=== PATIENT | male | born 1940 | race Caucasian/White ===

== ENCOUNTER 2019-09-25 14:53 | Day surgery (SDC) | payer MEDICARE ==
[2019-09-25] MEDS ORDERED: LEVSOD100 PO (17:20)
[2019-09-25] MEDS ORDERED: IMODIUM MULTI-1 EAC1 PO (17:20)
[2019-09-25] MEDS ORDERED: PANT40 PO (17:21)
[2019-09-25] MEDS ORDERED: Lomotil Tablet1 EACH PO (17:21)
[2019-09-25] MEDS ORDERED: XARELTO20 MG PO (17:23)
== END 2019-09-25 17:47 | disposition home or self-care (01) ==
LOC: ATC 14:53
DX: Z76.0 Encounter for issue of repeat prescription (principal); I10 Essential (primary) hypertension; E78.5 Hyperlipidemia, unspecified; E03.9 Hypothyroidism, unspecified; Z93.2 Ileostomy status; Z90.49 Acquired absence of other specified parts of digestive tract; Z79.899 Other long term (current) drug therapy
CPT/HCPCS: 96360; 96361; J7120

== ENCOUNTER 2019-10-04 00:15 | Day surgery (SDC) | payer MEDICARE ==
[~2019-10-04 00:15] MED LIST: IMODIUM MULTI-1 EAC1 PO; LEVSOD100 PO; Lomotil Tablet1 EACH PO; PANT40 PO; XARELTO20 MG PO
== END 2019-10-04 12:15 | disposition home or self-care (01) ==
LOC: ATC 00:15
DX: Z93.2 Ileostomy status (principal); Z90.49 Acquired absence of other specified parts of digestive tract; I10 Essential (primary) hypertension; E78.5 Hyperlipidemia, unspecified; E03.9 Hypothyroidism, unspecified; Z79.899 Other long term (current) drug therapy; Z79.01 Long term (current) use of anticoagulants
CPT/HCPCS: 96360; 96361; J7120

== ENCOUNTER 2019-10-11 00:11 | Day surgery (SDC) | payer MEDICARE ==
[2019-10-11] MEDS ORDERED: Lactated Ringe500 M1 (09:38)
[2019-10-11] MEDS ORDERED: Lactated Ringe500 M1 IV (09:40)
[2019-10-11 10:14] LABS: Albumin, Blood 2.7 g/dL (3.4-5.0); Albumin/Globulin Ratio 0.7 (0.8-1.8); Bilirubin, Total 0.5 mg/dL (0.1-1.0); Bun/Creatinine Ratio 8.1 (12.0-20.0); Calcium, Blood 8.1 mg/dL (8.5-10.1); Creatinine, Blood 1.24 mg/dL (0.60-1.20); Globulin, Blood 3.9 g/dL (2.2-4.0); Potassium, Blood 3.2 mmol/L (3.5-5.5); Total Protein, Blood 6.6 g/dL (6.4-8.2)
== END 2019-10-11 11:38 | disposition home or self-care (01) ==
LOC: ATC 00:11
PROVIDERS: Surgery
DX: Z93.2 Ileostomy status (principal); E78.5 Hyperlipidemia, unspecified; I10 Essential (primary) hypertension; E03.9 Hypothyroidism, unspecified; Z90.49 Acquired absence of other specified parts of digestive tract; Z79.899 Other long term (current) drug therapy
CPT/HCPCS: 80053; 96360; 96361; J7120

== ENCOUNTER 2019-10-13 00:43 | Day surgery (SDC) | payer MEDICARE ==
[~2019-10-13 00:43] MED LIST changes: +Lactated Ringe500 M1; +Lactated Ringe500 M1 IV
== END 2019-10-13 11:41 | disposition home or self-care (01) ==
LOC: ATC 00:43
DX: Z93.2 Ileostomy status (principal); Z90.49 Acquired absence of other specified parts of digestive tract; E78.5 Hyperlipidemia, unspecified; I10 Essential (primary) hypertension; E03.9 Hypothyroidism, unspecified; Z79.899 Other long term (current) drug therapy
CPT/HCPCS: J7120

== ENCOUNTER 2019-10-15 00:07 | Day surgery (SDC) | payer MEDICARE ==
[2019-10-15 14:50] LABS: Alanine Aminotransfer (ALT/SGP 46 U/L (12-78); Albumin, Blood 2.9 g/dL (3.4-5.0); Albumin/Globulin Ratio 0.7 (0.8-1.8); Alk Phos 146 U/L (50-136); Anion Gap 8 mmol/L (6-16); Aspartate Aminotrans (AST/SGOT 29 U/L (12-37); Bilirubin, Total 0.5 mg/dL (0.1-1.0); Blood Urea Nitrogen 7 mg/dL (8-24); Bun/Creatinine Ratio 6.1 (12.0-20.0); CO2, Blood 25 mmol/L (21-32); Calcium, Blood 8.4 mg/dL (8.5-10.1); Chloride, Blood 105 mmol/L (98-108); Creatinine, Blood 1.15 mg/dL (0.60-1.20); Globulin, Blood 4.2 g/dL (2.2-4.0); Glomerular Filtration Rate >60 (60-); Glucose, Blood 162 mg/dL (70-99); Potassium, Blood 3.4 mmol/L (3.5-5.5); Sodium, Blood 138 mmol/L (136-145); Total Protein, Blood 7.1 g/dL (6.4-8.2)
== END 2019-10-15 16:20 | disposition home or self-care (01) ==
LOC: ATC 00:07
PROVIDERS: Surgery
DX: Z93.2 Ileostomy status (principal); E78.5 Hyperlipidemia, unspecified; I10 Essential (primary) hypertension; E03.9 Hypothyroidism, unspecified; Z79.899 Other long term (current) drug therapy; Z79.01 Long term (current) use of anticoagulants; Z90.49 Acquired absence of other specified parts of digestive tract
CPT/HCPCS: 80053; J7120

== ENCOUNTER 2019-10-19 00:02 | Day surgery (SDC) | payer MEDICARE | END 2019-10-19 11:45 | disposition home or self-care (01) | LOC: ATC 00:02 | DX: Z43.2 Encounter for attention to ileostomy (principal); E78.5 Hyperlipidemia, unspecified; I10 Essential (primary) hypertension; E03.9 Hypothyroidism, unspecified; Z79.01 Long term (current) use of anticoagulants; Z79.899 Other long term (current) drug therapy; Z90.49 Acquired absence of other specified parts of digestive tract | CPT/HCPCS: 96360; 96361; J7120 ==

== ENCOUNTER 2019-10-23 00:02 | Day surgery (SDC) | payer MEDICARE ==
[2019-10-23 11:01] LABS: Albumin, Blood 3.5 g/dL (3.4-5.0); Albumin/Globulin Ratio 0.8 (0.8-1.8); Bilirubin, Total 0.7 mg/dL (0.1-1.0); Bun/Creatinine Ratio 10.3 (12.0-20.0); Calcium, Blood 8.8 mg/dL (8.5-10.1); Creatinine, Blood 1.45 mg/dL (0.60-1.20); Globulin, Blood 4.3 g/dL (2.2-4.0); Potassium, Blood 4.1 mmol/L (3.5-5.5); Total Protein, Blood 7.8 g/dL (6.4-8.2)
== END 2019-10-23 12:55 | disposition home or self-care (01) ==
LOC: ATC 00:02
PROVIDERS: Surgery
DX: Z93.2 Ileostomy status (principal); E78.5 Hyperlipidemia, unspecified; I10 Essential (primary) hypertension; E03.9 Hypothyroidism, unspecified; Z90.49 Acquired absence of other specified parts of digestive tract; Z79.899 Other long term (current) drug therapy
CPT/HCPCS: 80053; 96360; 96361; J7120

== ENCOUNTER 2019-10-25 00:03 | Day surgery (SDC) | payer MEDICARE | END 2019-10-25 12:02 | disposition home or self-care (01) | LOC: ATC 00:03 | DX: Z93.2 Ileostomy status (principal); Z90.49 Acquired absence of other specified parts of digestive tract; E11.9 Type 2 diabetes mellitus without complications; E78.5 Hyperlipidemia, unspecified; E03.9 Hypothyroidism, unspecified; Z79.899 Other long term (current) drug therapy; Z79.01 Long term (current) use of anticoagulants | CPT/HCPCS: 96360; 96361; C1751; J7120 ==

== ENCOUNTER 2019-10-31 00:18 | Day surgery (SDC) | payer MEDICARE | END 2019-10-31 12:05 | disposition home or self-care (01) | LOC: ATC 00:18 | DX: Z93.2 Ileostomy status (principal); Z90.49 Acquired absence of other specified parts of digestive tract; I10 Essential (primary) hypertension; E78.5 Hyperlipidemia, unspecified; E03.9 Hypothyroidism, unspecified; Z79.899 Other long term (current) drug therapy; Z79.01 Long term (current) use of anticoagulants | CPT/HCPCS: 96360; J7120 ==

== ENCOUNTER 2019-11-05 00:06 | Day surgery (SDC) | payer MEDICARE | END 2019-11-05 11:43 | disposition home or self-care (01) | LOC: ATC 00:06 | DX: Z93.2 Ileostomy status (principal); Z90.49 Acquired absence of other specified parts of digestive tract; I10 Essential (primary) hypertension; E78.5 Hyperlipidemia, unspecified; E03.9 Hypothyroidism, unspecified; Z79.899 Other long term (current) drug therapy | CPT/HCPCS: J7120 ==

== ENCOUNTER 2019-11-14 00:03 | Day surgery (SDC) | payer MEDICARE | END 2019-11-14 11:08 | disposition home or self-care (01) | LOC: ATC 00:03 | DX: Z93.2 Ileostomy status (principal); I10 Essential (primary) hypertension; E78.5 Hyperlipidemia, unspecified; E03.9 Hypothyroidism, unspecified; Z79.01 Long term (current) use of anticoagulants; Z79.899 Other long term (current) drug therapy | CPT/HCPCS: 96360; J7120 ==

== ENCOUNTER 2019-11-16 00:10 | Day surgery (SDC) | payer MEDICARE | END 2019-11-16 11:11 | disposition home or self-care (01) | LOC: ATC 00:10 | DX: Z93.2 Ileostomy status (principal); Z90.49 Acquired absence of other specified parts of digestive tract; E78.5 Hyperlipidemia, unspecified; I10 Essential (primary) hypertension; E03.9 Hypothyroidism, unspecified; Z79.899 Other long term (current) drug therapy; Z79.01 Long term (current) use of anticoagulants | CPT/HCPCS: J7120 ==

== ENCOUNTER 2019-11-19 00:17 | Day surgery (SDC) | payer MEDICARE | END 2019-11-19 10:36 | disposition home or self-care (01) | LOC: ATC 00:17 | DX: Z93.2 Ileostomy status (principal); I10 Essential (primary) hypertension; E78.5 Hyperlipidemia, unspecified; E03.9 Hypothyroidism, unspecified; Z79.899 Other long term (current) drug therapy; Z90.49 Acquired absence of other specified parts of digestive tract | CPT/HCPCS: J7120 ==

== ENCOUNTER 2019-11-21 00:04 | Day surgery (SDC) | payer MEDICARE | END 2019-11-21 10:49 | disposition home or self-care (01) | LOC: ATC 00:04 | DX: Z93.2 Ileostomy status (principal); Z90.49 Acquired absence of other specified parts of digestive tract; E78.5 Hyperlipidemia, unspecified; E03.9 Hypothyroidism, unspecified; I10 Essential (primary) hypertension; Z79.899 Other long term (current) drug therapy | CPT/HCPCS: 96360; J7120 ==

== ENCOUNTER 2019-11-23 00:08 | Day surgery (SDC) | payer MEDICARE | END 2019-11-23 11:41 | disposition home or self-care (01) | LOC: ATC 00:08 | DX: Z93.2 Ileostomy status (principal); Z90.49 Acquired absence of other specified parts of digestive tract; I10 Essential (primary) hypertension; E78.5 Hyperlipidemia, unspecified; E03.9 Hypothyroidism, unspecified; Z79.899 Other long term (current) drug therapy | CPT/HCPCS: 96360; J7120 ==

== ENCOUNTER 2019-12-05 00:03 | Day surgery (SDC) | payer MEDICARE | END 2019-12-05 11:23 | disposition home or self-care (01) | LOC: ATC 00:03 | DX: Z93.2 Ileostomy status (principal); I10 Essential (primary) hypertension; E78.5 Hyperlipidemia, unspecified; E03.9 Hypothyroidism, unspecified; Z79.899 Other long term (current) drug therapy; Z79.01 Long term (current) use of anticoagulants; Z90.49 Acquired absence of other specified parts of digestive tract | CPT/HCPCS: 96360; J7120 ==

== ENCOUNTER 2019-12-07 00:47 | Day surgery (SDC) | payer MEDICARE | END 2019-12-07 12:23 | disposition home or self-care (01) | LOC: ATC 00:47 | DX: Z93.2 Ileostomy status (principal); I10 Essential (primary) hypertension; E78.5 Hyperlipidemia, unspecified; E03.9 Hypothyroidism, unspecified; Z79.899 Other long term (current) drug therapy; Z90.49 Acquired absence of other specified parts of digestive tract | CPT/HCPCS: 96360; J7120 ==

== ENCOUNTER 2019-12-12 00:10 | Day surgery (SDC) | payer MEDICARE | END 2019-12-12 11:22 | disposition home or self-care (01) | LOC: ATC 00:10 | DX: Z93.2 Ileostomy status (principal); E03.9 Hypothyroidism, unspecified; E78.5 Hyperlipidemia, unspecified; I10 Essential (primary) hypertension; Z79.899 Other long term (current) drug therapy | CPT/HCPCS: 96360; J7120 ==

== ENCOUNTER 2019-12-14 00:21 | Day surgery (SDC) | payer MEDICARE | END 2019-12-14 11:40 | disposition home or self-care (01) | LOC: ATC 00:21 | DX: Z93.2 Ileostomy status (principal); I10 Essential (primary) hypertension; E78.5 Hyperlipidemia, unspecified; E03.9 Hypothyroidism, unspecified; Z79.899 Other long term (current) drug therapy; Z90.49 Acquired absence of other specified parts of digestive tract | CPT/HCPCS: 96360; J7120 ==

== ENCOUNTER 2019-12-17 00:21 | Day surgery (SDC) | payer MEDICARE ==
[2019-12-17 10:12] LABS: Alanine Aminotransfer (ALT/SGP 217 U/L (12-78); Albumin, Blood 3.7 g/dL (3.4-5.0); Albumin/Globulin Ratio 0.9 (0.8-1.8); Alk Phos 218 U/L (50-136); Anion Gap 5 mmol/L (6-16); Aspartate Aminotrans (AST/SGOT 121 U/L (12-37); Bilirubin, Total 0.8 mg/dL (0.1-1.0); Blood Urea Nitrogen 21 mg/dL (8-24); Bun/Creatinine Ratio 17.1 (12.0-20.0); CO2, Blood 24 mmol/L (21-32); Calcium, Blood 8.7 mg/dL (8.5-10.1); Chloride, Blood 113 mmol/L (98-108); Creatinine, Blood 1.23 mg/dL (0.60-1.20); Globulin, Blood 4.1 g/dL (2.2-4.0); Glomerular Filtration Rate >60 (60-); Glucose, Blood 121 mg/dL (70-99); Potassium, Blood 4.1 mmol/L (3.5-5.5); Prealbumin, Blood 31.5 mg/dL (20.0-40.0); Sodium, Blood 142 mmol/L (136-145); Total Protein, Blood 7.8 g/dL (6.4-8.2)
== END 2019-12-17 10:40 | disposition home or self-care (01) ==
LOC: ATC 00:21
PROVIDERS: Surgery
DX: Z93.2 Ileostomy status (principal); E78.5 Hyperlipidemia, unspecified; I10 Essential (primary) hypertension; E03.9 Hypothyroidism, unspecified
CPT/HCPCS: 80053; 84134; 96360; J7120

== ENCOUNTER 2019-12-19 00:13 | Day surgery (SDC) | payer MEDICARE | END 2019-12-19 10:34 | disposition home or self-care (01) | LOC: ATC 00:13 | DX: Z93.2 Ileostomy status (principal); I10 Essential (primary) hypertension; E78.5 Hyperlipidemia, unspecified; E03.9 Hypothyroidism, unspecified | CPT/HCPCS: 96360; J7120 ==

== ENCOUNTER 2019-12-21 00:23 | Day surgery (SDC) | payer MEDICARE | END 2019-12-21 10:40 | disposition home or self-care (01) | LOC: ATC 00:23 | DX: Z93.2 Ileostomy status (principal); I10 Essential (primary) hypertension; E78.5 Hyperlipidemia, unspecified; E03.9 Hypothyroidism, unspecified; Z79.899 Other long term (current) drug therapy | CPT/HCPCS: 96360; J7120 ==

== ENCOUNTER 2020-01-07 00:04 | Day surgery (SDC) | payer MEDICARE ==
[2020-01-07 10:39] LABS: BASOPHILS ABSOLUTE AUTO 0.03 K/mm3 (0.00-0.23); BASOPHILS PERCENT AUTO 0 % (0-2); EOSINOPHILS ABSOLUTE AUTO 0.07 K/mm3 (0.00-0.68); EOSINOPHILS PERCENT AUTO 1 % (0-6); Hemoglobin 11.5 g/dL (13.5-17.5); IMMATURE GRAN ABSOLUTE AUTO 0.09 K/mm3 (0.00-0.10); IMMATURE GRAN PERCENT AUTO 1 % (0-1); LYMPHOCYTES ABSOLUTE AUTO 1.81 K/mm3 (0.84-5.20); LYMPHOCYTES PERCENT AUTO 21 % (21-46); MONOCYTES PERCENT AUTO 8 % (4-13); Mean Corpuscular HGB 29.5 pg (26.0-34.0); Mean Corpuscular HGB Conc 32.9 g/dL (31.5-36.5); Mean Corpuscular Volume 90 fL (80-100); Mean Platelet Volume 8.3 fL (9.1-12.4); NEUTROPHILS ABSOLUTE AUTO 5.81 K/mm3 (1.96-9.15); NEUTROPHILS PERCENT AUTO 68 % (41-73); Platelet Count 524 K/mm3 (150-400); RDW Coefficient Variation 15.2 % (11.7-14.2); RDW Standard Deviation 50.1 fL (35.1-46.3); White Blood Cell Count 8.51 K/mm3 (4.00-11.30)
[2020-01-07 11:04] LABS: Alanine Aminotransfer (ALT/SGP 27 U/L (12-78); Albumin, Blood 2.9 g/dL (3.4-5.0); Albumin/Globulin Ratio 0.8 (0.8-1.8); Alk Phos 136 U/L (50-136); Anion Gap 9 mmol/L (6-16); Aspartate Aminotrans (AST/SGOT 18 U/L (12-37); Bilirubin, Total 0.5 mg/dL (0.1-1.0); Blood Urea Nitrogen 11 mg/dL (8-24); Bun/Creatinine Ratio 10.4 (12.0-20.0); CO2, Blood 25 mmol/L (21-32); Calcium, Blood 7.7 mg/dL (8.5-10.1); Chloride, Blood 109 mmol/L (98-108); Creatinine, Blood 1.06 mg/dL (0.60-1.20); Globulin, Blood 3.6 g/dL (2.2-4.0); Glomerular Filtration Rate >60 (60-); Glucose, Blood 134 mg/dL (70-99); Sodium, Blood 143 mmol/L (136-145); Total Protein, Blood 6.5 g/dL (6.4-8.2)
== END 2020-01-07 11:30 | disposition home or self-care (01) ==
LOC: ATC 00:04
PROVIDERS: Surgery
DX: Z93.2 Ileostomy status (principal); I10 Essential (primary) hypertension; E78.5 Hyperlipidemia, unspecified; Z79.899 Other long term (current) drug therapy; E03.9 Hypothyroidism, unspecified
CPT/HCPCS: 80053; 85025; 96360; J7120